=== PATIENT | male | born 1995 | race Hispanic/Latino ===

== ENCOUNTER → 2020-03-18 | Outpatient (CLI) | payer BC, OTHER | LOC: GMAE 14:58 | PROVIDERS: ATTEND Family Medicine | DX: Z00.00 Encounter for general adult medical examination without abnormal findings (principal) ==

== ENCOUNTER 2020-05-02 11:37 | Emergency (ER) | payer BC, OTHER ==
--- NOTE | 2020-05-02 12:10 | ED.PDOC ---
History of Present Illness - General Chief Complaint: Respiratory Problem Stated Complaint: cough,fever,fatigue,GARCIA Time Seen by Provider: 05/02/20 12:05 Additional Information: Patient is a 24-year-old male who presents to the ED with father and mother with chief complaint of cough. Patient was diagnosed with Covid 2 weeks ago with entire family (son, mom, dad) and patient is complaining of persistent cough and low-grade fever. Symptoms are now worsening, just persistent. Patient presents with family members to make sure that they are not coming down with pneumonia. Patient otherwise feels well and there are no other complaints at this time. - History of Present Illness Allergies/Adverse Reactions: Allergies NO KNOWN ALLERGY Allergy (Verified 05/02/20 12:00) Home Medications: Ambulatory Orders Azithromycin [Zithromax Z-Ryan] 250 mg PO DAILY #6 tab 05/02/20 Review of Systems - Review of Systems Constitutional: States: see HPI, fever. Denies: chills, weakness EENTM: States: no symptoms reported Respiratory: States: see HPI, cough. Denies: short of breath Cardiology: States: no symptoms reported. Denies: chest pain, palpitations Gastrointestinal/Abdominal: States: no symptoms reported. Denies: abdominal pain, nausea, vomiting All other Systems: Reviewed and Negative Past Medical History (General) - Patient Medical History Hx Stroke: No Hx Congestive Heart Failure: No Hx Diabetes: No Surgical History: no surgical history - Vaccination History Hx Influenza Vaccination: Yes - Social History Hx Tobacco Use: No Family Medical History - Family History Father Family History: Unknown Living Status: Still Living Physical Exam - Physical Exam General Appearance: Alert, Comfortable, No apparent distress, Well Developed, Well Nourished ENT Exam: normal ENT inspection Neck: full range of motion, supple, normal inspection Respiratory: chest non-tender, lungs clear, normal breath sounds, no respiratory distress, no accessory muscle use Cardiovascular/Chest: normal peripheral pulses, regular rate, rhythm, no edema, no gallop, no JVD, no murmur Gastrointestinal/Abdominal: normal bowel sounds, non tender, soft Extremity: normal inspection, no pedal edema 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 His chest x-ray suggests pneumonia but his labs are normal including lactate and D-dimer. Patient has been given IV Rocephin in the ED and I will DC home with Z-Ryan. Patient has an acceptable room air oxygen saturation including ambulatory saturation. Vital signs stable, patient is NAD and looks clinically well and I believe is safe for discharge with outpatient follow-up. Follow-up instructions, discharge instructions and return to ED precautions discussed with patient. Patient voices understanding and willingness to comply with instructions. All laboratory and radiographic results have been discussed with the patient, and all questions answered. Patient is happy with plan. 05/02/20 14:23 Departure - Departure Clinical Impression: COVID-19 Pneumonia Qualifiers: Pneumonia type: due to unspecified organism Time of Disposition: 14:23 Disposition: Discharge to Home or Self Care Condition: Fair Departure Forms: ED Discharge - Pt. Copy, Patient Portal Self Enrollment Instructions: Pneumonia in Adults, Coronavirus Disease 2019 (COVID-19) Referrals: KAREEM MCNEIL MD [Primary Care Provider] - 1-5 Days Prescriptions: Azithromycin [Zithromax Z-Ryan] 250 mg PO DAILY #6 tab Home Medications: Ambulatory Orders Azithromycin [Zithromax Z-Ryan] 250 mg PO DAILY #6 tab 05/02/20
--- NOTE | 2020-05-02 13:04 | RAD ---
EXAM DESCRIPTION: Chest,1 View CLINICAL HISTORY: 24 years Male, cough COMPARISON: None. TECHNIQUE: AP portable chest. FINDINGS: Heart size is large with increased pulmonary vascularity. Bilateral pulmonary infiltrates in the left upper lobe, both lower lobes and right upper lobe. This could be volume overload with congestive failure but the patchy asymmetrical appearance is worrisome for pneumonia. Right paratracheal density may be dilated azygous vein rather than mediastinal adenopathy. No pulmonary mass or worrisome nodule. No pneumothorax or pleural effusion. Bones are unremarkable. IMPRESSION: Large heart with increased vascularity. Bilateral pulmonary infiltrates worrisome for pneumonia. Electronically signed by: Reed Perea MD 05/02/2020 1:03 PM [facility]
[2020-05-02] MEDS ORDERED: cefTRIAXone SODIUM 1 GM in SODIUM CHL 0.9% 50ML MIN-BAG+ 50 ML IVPB ONE (13:09)
[2020-05-02 14:56] VITALS: BP 130/82; TEMP 97.8; O2SAT 97
== END 2020-05-02 14:56 | disposition home or self-care (01) ==
LOC: ER 11:37
DX: U07.1 COVID-19 (principal); J12.89 Other viral pneumonia
CPT/HCPCS: 71045; 80053; 83605; 85025; 85379; J0696; J7050